=== PATIENT | female | born 1955 | race Caucasian/White ===

== ENCOUNTER 2018-12-31 05:16 | Inpatient (IN) | payer BC ==
[2018-12-27 14:41] LABS: ADD MAN DIFF? NO
[2018-12-27 14:52] LABS: WHITE BLOOD COUNT 5.5 10^3/ul (4.8-10.8)
[2018-12-27 14:52] LABS: BASOPHIL # 0.1 10^3/ul (0.0-0.1); BASOPHILS % 1.1 % (0.0-2.0); EOSINOPHILS # 0.1 10^3/ul (0.0-0.5); EOSINOPHILS % 1.6 % (0.0-7.0); HEMATOCRIT 41.2 % (37.0-47.0); LYMPHOCYTES # 1.7 10^3/ul (0.8-2.9); LYMPHOCYTES % 30.8 % (15.0-51.0); MEAN CORPUSCULAR HEMOGLOBIN 31.3 pg (29.0-33.0); MEAN PLATELET VOLUME 10.3 fl (7.4-10.4); MONOCYTE # 0.4 10^3/ul (0.3-0.9); MONOCYTES % 6.6 % (0.0-11.0); NEUTROPHIL # 3.3 10^3/ul (1.6-7.5); NEUTROPHILS % 59.7 % (39.0-77.0); PLATELET COUNT 193 10^3/UL (140-415); RED BLOOD COUNT 4.48 10^6/ul (4.20-5.40); RED CELL DISTRIBUTION WIDTH 12.2 % (11.5-14.5)
[2018-12-27 15:00] LABS: ALANINE AMINOTRANSFERASE 34 IU/L (13-69); ALBUMIN 4.7 g/dl (3.3-4.9); ALBUMIN/GLOBULIN RATIO 1.74; ALKALINE PHOSPHATASE 62 IU/L (42-121); ANION GAP 9 (5-13); ASPARTATE AMINO TRANSFERASE 30 IU/L (15-46); BILIRUBIN,INDIRECT 0.5 mg/dl (0-1.1); BILIRUBIN,TOTAL 0.5 mg/dl (0.2-1.3); BLOOD UREA NITROGEN 19 mg/dl (7-20); CALCIUM 9.3 mg/dl (8.4-10.2); CARBON DIOXIDE 29 mmol/L (21-31); CHLORIDE 102 mmol/L (97-110); Estimated GFR > 60 mL/min (>60); GLUCOSE 95 mg/dl (70-220); POTASSIUM 3.9 mmol/L (3.5-5.1); SODIUM 140 mmol/L (135-144); TOTAL PROTEIN 7.4 g/dl (6.1-8.1)
[2018-12-27 15:02] LABS: INR 0.96; PROTIME 12.9 Sec (11.9-14.9)
[2018-12-27 15:03] LABS: PARTIAL THROMBOPLASTIN TIME 28.9 Sec (23.0-35.0)
[2018-12-27 15:07] LABS: ADD UMIC YES; UR ASCORBIC ACID NEGATIVE (NEGATIVE); UR BILIRUBIN (Dip) NEGATIVE (NEGATIVE); UR BLOOD (Dip) 1+ mg/dL (NEGATIVE); UR CLARITY CLEAR (CLEAR); UR COLOR STRAW (YELLOW); UR GLUCOSE (Dip) NEGATIVE (NEGATIVE); UR KETONES (Dip) NEGATIVE (NEGATIVE); UR LEUKOCYTE ESTERASE (Dip) 1+ Leu/ul (NEGATIVE); UR NITRITE (Dip) NEGATIVE (NEGATIVE); UR RBC 1 /HPF (0-5); UR SPECIFIC GRAVITY (Dip) 1.011 (1.003-1.030); UR TOTAL PROTEIN (Dip) NEGATIVE (NEGATIVE); UR UROBILINOGEN (Dip) NEGATIVE (NEGATIVE); UR WBC 7 /HPF (0-5)
[2018-12-27 16:04] LABS: ERYTHROCYTE SEDIMENTATION RATE 3 mm/Hr (0-30)
[~2018-12-31 05:16] MED LIST: CEFAZOLIN 2 GM/50 ML (PMX) 50 ML IVPB; LACTATED RINGER'S 1,000 ML IV
[2018-12-31] MEDS: LACTATED RINGER'S 1,000 ML IV (06:14)
[2018-12-31] MEDS ORDERED: THROMBIN 5000 UNIT (RECOTHROM) VIAL (07:00)
[2018-12-31] MEDS ORDERED: GELATIN SIZE 100 SPONGE (07:00)
[2018-12-31] MEDS ORDERED: ROCURONIUM 50 MG INJ (07:01)
[2018-12-31] MEDS ORDERED: EPHEDrine 25 MG/5 ML SYG (07:01)
[2018-12-31] MEDS ORDERED: PROPOFOL 20 ML (07:01)
[2018-12-31] MEDS ORDERED: SUCCINYLCHOLINE CHLORIDE 100 MG/5 ML SYG IV (07:01)
[2018-12-31] MEDS ORDERED: FENTAnyl 50 MCG/ML VIAL (07:01)
[2018-12-31] MEDS ORDERED: LIDOCAINE 100 MG SYRINGE (07:01)
[2018-12-31] MEDS: CEFAZOLIN 2 GM/50 ML (PMX) 50 ML IVPB (07:06)
[2018-12-31] MEDS: BUPIVACAINE 0.25% (MPF) 30 ML INJ (08:29)
[2018-12-31] MEDS: POLYMYXIN/BACITRACIN 1L IRRIG (08:29)
[2018-12-31] MEDS ORDERED: SUGAMMADEX SODIUM 200 MG/2 ML VIAL IV (09:08)
[2018-12-31] MEDS: ONDANSETRON 4 MG INJ IV ×3 (09:56→14:39)
[2018-12-31] MEDS ORDERED: OXYCODONE/ACETAMINOPHEN (5/325) TAB PO ×2 (10:00)
[2018-12-31] MEDS ORDERED: FENTAnyl 50 MCG/ML VIAL IV ×3 (10:00)
[2018-12-31] MEDS ORDERED: DIPHENHYDRAMINE 50 MG CAP PO (10:00)
[2018-12-31] MEDS ORDERED: NACL 0.9% 3 ML SYG IV (10:00)
[2018-12-31] MEDS ORDERED: MEPERIDINE 25 MG INJ IV (10:00)
[2018-12-31] MEDS ORDERED: ZOLPIDEM 5 MG TAB PO (10:00)
[2018-12-31] MEDS ORDERED: AL HYDROX/MG HYDROX/SIMETH 30 ML CUP PO (10:00)
[2018-12-31] MEDS ORDERED: PROCHLORPERAZINE 10 MG TAB PO (10:00)
[2018-12-31] MEDS ORDERED: ACETAMINOPHEN 325 MG TAB PO (10:00)
[2018-12-31] MEDS ORDERED: DIAZEPAM 5 MG/ML SYG IM (10:00)
[2018-12-31] MEDS ORDERED: TRIMETHOBENZAMIDE 100 MG/ML VIAL IM (10:00)
[2018-12-31] MEDS ORDERED: BETHANECHOL 25 MG TAB PO (10:00)
[2018-12-31] MEDS ORDERED: NALOXONE (0.4 MG/ML) INJ IV (10:00)
[2018-12-31] MEDS ORDERED: KETOROLAC 30 MG INJ IV (10:00)
[2018-12-31] MEDS ORDERED: HYDROmorphONE 1 MG/5 ML IV SYRINGE IV (10:00)
[2018-12-31] MEDS: HYDROmorphONE 0.2 MG/ML PCA IV (10:32)
[2018-12-31] MEDS: HYDROmorphONE 1 MG/5 ML IV SYRINGE IV ×2 (10:52→10:53)
[2018-12-31] MEDS: CEFAZOLIN 1 GM/50 ML (PMX) 50 ML IVPB (12:19)
[2018-12-31] MEDS: DEXTROSE 5%-0.45% NACL 1,000 ML IV ×2 (12:20→19:36)
[2018-12-31] MEDS: METOCLOPRAMIDE 10 MG INJ IV (13:58)
[2018-12-31] MEDS: DIAZEPAM 5 MG TAB PO ×3 (14:45→23:01)
[2018-12-31] MEDS: CEPASTAT LOZENGE MT (18:47)
[2018-12-31] MEDS: AMITRIPTYLINE 10 MG TAB PO (20:55)
[2018-12-31] MEDS: RANITIDINE 150 MG TAB PO (20:55)
[2019-01-01] MEDS: DEXTROSE 5%-0.45% NACL 1,000 ML IV ×2 (00:14→15:36)
[2019-01-01] MEDS: DIAZEPAM 5 MG TAB PO ×5 (03:36→22:09)
[2019-01-01 05:09] LABS: HEMATOCRIT 34.5 % (37.0-47.0); HEMOGLOBIN 11.7 g/dl (12.0-16.0)
[2019-01-01 05:36] LABS: ANION GAP 3 (5-13); BLOOD UREA NITROGEN 6 mg/dl (7-20); CALCIUM 8.5 mg/dl (8.4-10.2); CARBON DIOXIDE 32 mmol/L (21-31); CHLORIDE 104 mmol/L (97-110); CREATININE 0.68 mg/dl (0.44-1.00); Estimated GFR > 60 mL/min (>60); GLUCOSE 118 mg/dl (70-220); POTASSIUM 4.1 mmol/L (3.5-5.1); SODIUM 139 mmol/L (135-144)
[2019-01-01] MEDS: LACTATED RINGER'S 1,000 ML IV (05:38)
[2019-01-01] MEDS: LEVOTHYROXINE 100 MCG TAB PO (06:48)
[2019-01-01] MEDS: ASCORBIC ACID 500 MG TAB PO ×2 (08:09→20:55)
[2019-01-01] MEDS: RANITIDINE 150 MG TAB PO ×2 (08:09→20:55)
[2019-01-01] MEDS: FERROUS SULFATE (EC) 325 MG TAB PO ×3 (08:09→20:55)
[2019-01-01] MEDS: DOCUSATE SODIUM 100 MG CAP PO ×2 (08:09→20:55)
[2019-01-01] MEDS: METOCLOPRAMIDE 10 MG INJ IV (08:50)
[2019-01-01] MEDS: BETHANECHOL 25 MG TAB PO (08:51)
[2019-01-01 13:11] LABS: ADD UMIC NO; UR ASCORBIC ACID NEGATIVE (NEGATIVE); UR BILIRUBIN (Dip) NEGATIVE (NEGATIVE); UR BLOOD (Dip) NEGATIVE (NEGATIVE); UR CLARITY CLEAR (CLEAR); UR COLOR YELLOW (YELLOW); UR GLUCOSE (Dip) NEGATIVE (NEGATIVE); UR KETONES (Dip) NEGATIVE (NEGATIVE); UR LEUKOCYTE ESTERASE (Dip) NEGATIVE Leu/ul (NEGATIVE); UR NITRITE (Dip) NEGATIVE (NEGATIVE); UR SPECIFIC GRAVITY (Dip) 1.011 (1.003-1.030); UR TOTAL PROTEIN (Dip) NEGATIVE (NEGATIVE); UR UROBILINOGEN (Dip) NEGATIVE (NEGATIVE)
[2019-01-01] MEDS: AMITRIPTYLINE 10 MG TAB PO (20:55)
[2019-01-01] MEDS: HYDROCODONE/APAP (5/325) TAB PO (21:01)
[2019-01-02] MEDS: HYDROCODONE/APAP (5/325) TAB PO ×2 (01:05→09:45)
[2019-01-02] MEDS: DEXTROSE 5%-0.45% NACL 1,000 ML IV (01:10)
[2019-01-02] MEDS: LACTATED RINGER'S 1,000 ML IV (05:57)
[2019-01-02] MEDS: LEVOTHYROXINE 100 MCG TAB PO (06:32)
[2019-01-02] MEDS: DIAZEPAM 5 MG TAB PO (07:20)
[2019-01-02] MEDS: DOCUSATE SODIUM 100 MG CAP PO (09:44)
[2019-01-02] MEDS: FERROUS SULFATE (EC) 325 MG TAB PO (09:44)
[2019-01-02] MEDS: ASCORBIC ACID 500 MG TAB PO (09:44)
[2019-01-02] MEDS: RANITIDINE 150 MG TAB PO (09:45)
== END 2019-01-02 11:01 | disposition home or self-care (01) | DRG 517 ==
LOC: REC 05:16 → MS1 11:06
PROC: 01NB0ZZ Release Lumbar Nerve, Open Approach (ICD-10-PCS; principal; 2018-12-31 07:00)
DX: M48.061 Spinal stenosis, lumbar region without neurogenic claudication (principal); E03.9 Hypothyroidism, unspecified; G47.00 Insomnia, unspecified; R11.2 Nausea with vomiting, unspecified; Z87.891 Personal history of nicotine dependence
CPT/HCPCS: 72020; 80048; 80053; 81001; 81003; 85014; 85018; 85025; 85610; 85651; 85730; 86850; 86900; 86901; 86920; 87086; 88304; 88311; 97110; 97116; 97162; 97530